=== PATIENT | male | born 1980 | race Caucasian/White ===

== ENCOUNTER 2022-12-29 01:46 | Day surgery (SDC) | payer OTHER, SELFPAY ==
[2022-12-26 12:57] VITALS: BMI 33.0
[2022-12-29 07:41] VITALS: BP 146/98; PULSE 80; RESP 18; TEMP 36.3; O2SAT 99
[2022-12-29] MEDS: LACTATED RINGERS 1,000 ML 150 ML IV CONT (07:43)
--- NOTE | 2022-12-29 08:22 | P.PNAN_ITS ---
Anes - Initial Pre Proc Eval Procedure: Operation Date: 12/29/22 09:00 Proposed Procedures p Colonoscopy - Lui Johnston DO Date/Time: 12/29/22 08:22 Surgeon: Lui Johnston DO Pre Op Diagnosis: Rectal Bleed Patient Data Age: 42 Gender: M Height: 1.78 m Weight: 106 kg Last Vital Signs Temp 97.3 F L 12/29/22 07:41 Pulse 80 12/29/22 07:41 Resp 18 12/29/22 07:41 BP 146/98 H 12/29/22 07:41 Pulse Ox 99 12/29/22 07:41 O2 Del Method Room Air 12/29/22 07:41 Allergies Allergy/AdvReac Type Severity Reaction Status Date / Time No Known Allergies Allergy Verified 12/29/22 07:40 Home Medications Medication Instructions Recorded Confirmed Type cetirizine 10 mg tablet (Zyrtec) 10 mg PO DAILY 12/26/22 12/29/22 History fluticasone propionate 50 2 spray intranasal DAILY 12/26/22 12/29/22 History mcg/actuation nasal spray,suspension omeprazole 20 mg tablet,delayed 20 mg PO DAILY 12/26/22 12/29/22 History release pseudoephedrine-guaifenesin ER 60 1 tablet PO Q12H 12/26/22 12/29/22 History mg-600 mg tablet,extend release 12hr (Mucinex D) Patient hx anesthesia problems: none Family hx anesthesia problems: none Results Review: All pre-operative results and documents have been reviewed as part of the pre- operative evaluation. [facility] Social History Social History Smoking status: Current every day smoker Tobacco type: smokeless tobacco Smokeless tobacco user: chewing tobacco Alcohol intake: current Drinks per week: 2 Substance use type: does not use Living arrangements: with family Spiritual care concerns: No Anes - Eval Final PreProcedure Day of Procedure 12/29/22 08:22 Patient weight: obese Heart: regular rate and rhythm Lungs: clear to auscultation Airway: Mallampati scale class II Neurological: alert and oriented Last oral intake: >/= 8 hours ASA classification: II Emergent: no Anesthetic plan: proceed Anesthesia type and monitoring: general GIVS and standard monitoring Results Review: All pre-operative results and documents have been reviewed as part of the pre- operative evaluation. Informed Consent: The patient's anesthetic plan and its attendant risks and benefits were discussed with the patient/family/POA. Questions were solicited and answers provided to the satisfaction of the patient/family/POA.
--- NOTE | 2022-12-29 09:17 | PM.IMHP ---
H&P: HPI History of Present Illness Date/Time: 12/29/22 09:17 Chief Complaint: rectal bleeding Narrative: this is a 42-year-old man who presents with occasional rectal bleeding. He does at times noticed bright red blood per rectum after bowel movements. He denies any blood mixed in with the stool. He denies any pain. Review of Systems Review of Systems: All systems reviewed & are unremarkable except as noted in HPI and below Constitutional: Constitutional: Denies chills, Denies fever(s), Denies headache(s) and Denies weight loss Eyes: Eyes: Denies change in vision ENT: Denies dizziness, Denies headache(s), Denies neck mass and Denies throat swelling Cardiovascular: Cardiovascular: Denies chest pain, Denies lightheadedness and Denies dyspnea Respiratory: Respiratory: Denies cough, Denies dyspnea and Denies wheezing Gastrointestinal: Gastrointestinal: Denies abdominal pain, Denies change in bowel habits, Denies nausea and Denies vomiting Genitourinary: Genitourinary: Denies hematuria and Denies dysuria Musculoskeletal: Musculoskeletal: Reports as per HPI Integumentary/Breasts: Skin/Breast: Reports as per HPI Neurologic: Denies dizziness and Denies headache(s) Allergic/Immunologic: Allergic/Immunologic: Denies throat swelling and Denies wheezing PMFSH Social History Social History Smoking status: Current every day smoker Tobacco type: smokeless tobacco Smokeless tobacco user: chewing tobacco Alcohol intake: current Drinks per week: 2 Substance use type: does not use Living arrangements: with family Spiritual care concerns: No Meds Home Medications and Allergies Home Medications Medication Instructions Recorded Confirmed Type cetirizine 10 mg tablet (Zyrtec) 10 mg PO DAILY 12/26/22 12/29/22 History fluticasone propionate 50 2 spray intranasal DAILY 12/26/22 12/29/22 History mcg/actuation nasal spray,suspension omeprazole 20 mg tablet,delayed 20 mg PO DAILY 12/26/22 12/29/22 History release pseudoephedrine-guaifenesin ER 60 1 tablet PO Q12H 12/26/22 12/29/22 History mg-600 mg tablet,extend release 12hr (Mucinex D) Allergies Allergy/AdvReac Type Severity Reaction Status Date / Time No Known Allergies Allergy Verified 12/29/22 07:40 Vital Signs Vital Signs - 24 hr 12/29/22 07:41 Temperature 36.3 C L Pulse Rate 80 Respiratory Rate 18 Blood Pressure 146/98 H Pulse Oximetry 99 Oxygen Delivery Room Air Exam Const: General: no acute distress and alert Orientation/consciousness: patient oriented x3 HENMT: Head: normocephalic and atraumatic Ears: hearing grossly normal bilaterally Face/Nose/Sinus: Normal nares present Mouth: Yes Normal oral and palatal mucosa present Eyes: Periorbital: periorbital findings normal Sclera: sclerae normal EOM: EOMs intact bilaterally Neck: Neck: normal visual inspection, no lymphadenopathy and trachea midline Chest: Chest palpation & inspection: normal inspection of the chest Resp: Effort & Inspection: normal respiratory effort Auscultation: clear to auscultation bilaterally Cardio: Jugular venous distension: no JVD Rate: regular rate Rhythm: regular rhythm Heart sounds: S1 normal heart sound present and S2 normal heart sound present Peripheral pulses: Peripheral pulses 2+ throughout GI: Inspection: normal to inspection GI Palp: Yes Soft to palpation, No Tenderness to palpation present (GI), No Guarding due to palpation present (GI) and No Rebound tenderness present Percussion: Yes normal to percussion Auscultation: normal bowel sounds : General: Yes no CVA tenderness Back/Spine/Pelvis: Back: no CVA tenderness Neuro: General: patient oriented x3, no focal motor deficits and CN's II-XI intact bilaterally Cognition (Neuro): normal cognition Speech: normal speech Motor exam (neuro): 5/5 motor strength present throughout Extrem: General: capillary refill normal and no clubbing, cyanosis or rey
[2022-12-29 09:42] VITALS: BP 121/76; PULSE 76; RESP 22; O2SAT 99
[2022-12-29 09:52] VITALS: BP 129/87; PULSE 76; RESP 25; O2SAT 99
[2022-12-29 10:02] VITALS: BP 135/101; PULSE 73; RESP 21; O2SAT 100
== END 2022-12-29 10:07 | disposition home or self-care (01) ==
PROVIDERS: PCP Nurse Practitioner Family; Visit Provider Surgery
PROC: 0DJD8ZZ Inspection of Lower Intestinal Tract, Via Natural or Artificial Opening Endoscopic (ICD-10-PCS; CPT 45378; principal; 2022-12-29 09:00)
DX: K62.5 Hemorrhage of anus and rectum (principal); K57.30 Diverticulosis of large intestine without perforation or abscess without bleeding; K64.8 Other hemorrhoids; F17.220 Nicotine dependence, chewing tobacco, uncomplicated; E66.9 Obesity, unspecified; Z68.33 Body mass index [BMI] 33.0-33.9, adult
CPT/HCPCS: 45378; J2704; J7120